=== PATIENT | female | born 1950 | race Hispanic/Latino ===

== ENCOUNTER → 2018-10-13 | Outpatient (CLI) | payer MEDICARE ==
[~2018-10-13] MED LIST: HYDR-3421 PO; LISI40TA4 PO; PREG50 PO; SENN8.6T90 PO; TRAM50TA4 PO
== END | disposition home or self-care (01) ==
LOC: OIH 13:49
PROVIDERS: ATTEND Family Medicine
DX: M19.071 Primary osteoarthritis, right ankle and foot (principal); M77.31 Calcaneal spur, right foot
CPT/HCPCS: 73600

== ENCOUNTER → 2018-12-08 | Outpatient (CLI) | payer MEDICARE | END | disposition home or self-care (01) | LOC: OIH 11:12 | PROVIDERS: ATTEND Family Medicine | DX: M85.80 Other specified disorders of bone density and structure, unspecified site (principal) | CPT/HCPCS: 73562 ==

== ENCOUNTER 2019-05-04 09:42 | Inpatient (IN) | payer MEDICARE | END 2019-05-08 12:05 | disposition home or self-care (01) | LOC: EDH 09:42 → EDHIP 09:43 → 4BH 11:00 | DX: M48.061 Spinal stenosis, lumbar region without neurogenic claudication (principal); Z85.118 Personal history of other malignant neoplasm of bronchus and lung; I48.91 Unspecified atrial fibrillation; M47.9 Spondylosis, unspecified ==

== ENCOUNTER → 2019-05-18 | Outpatient (CLI) | payer MEDICARE ==
[~2019-05-18] MED LIST changes: +DICL75TA5 PO; -HYDR-3421 PO; +HYDR-4068 PO; +INSLAN SQ; +NAPR-1023 PO; -PREG50 PO; -SENN8.6T90 PO; -TRAM50TA4 PO
== END | disposition home or self-care (01) ==
LOC: RAH 10:27
PROVIDERS: ATTEND Family Medicine
DX: M77.31 Calcaneal spur, right foot (principal)
CPT/HCPCS: 73610; 73630

== ENCOUNTER 2021-05-24 11:03 | Observation (INO) | payer OTHER, MEDICARE ==
[~2021-05-24] VITALS: Ht 160 cm; Wt 49.6 kg
[~2021-05-24 11:03] MED LIST changes: -LISI40TA4 PO; +LISI40TA9 PO
[2021-05-24 11:40] LABS: MEAN CORPUSCULAR HEMOGLOBIN 29.4 pg (27.0-33.0); MEAN CORPUSCULAR HGB CONC 31.4 g/dL (32.0-36.0); MEAN CORPUSCULAR VOLUME 93.7 fL (79-99); NUCLEATED RED BLOOD CELLS 0.3 % (0.0-0.19); PLATELET COUNT (AUTO) 145 K/uL (130-400); RED BLOOD CELL COUNT(AUTO) 2.21 MIL/uL (4.00-5.50); WHITE BLOOD COUNT (AUTO) 7.8 K/uL (4.8-10.8)
[2021-05-24] MEDS: 0.9%NACL 1000ML 1,000 ML IV SCH (11:46)
[2021-05-24 11:51] LABS: CREATININE 0.7 mg/dL (0.5-1.5); POTASSIUM 3.5 mmol/L (3.5-5.1)
[2021-05-24 11:55] LABS: ALBUMIN 2.7 g/dL (3.5-5.0); BILIRUBIN,TOTAL 0.2 mg/dL (0.2-1.0)
[2021-05-24] MEDS ORDERED: DiphenhydrAMINE HCL 50 MG/ML VIAL IVP PRN (12:00)
[2021-05-24] MEDS ORDERED: MORPHINE 4 MG SYG IVP PRN (12:00)
[2021-05-24] MEDS ORDERED: NITROGLYCERIN 0.4 MG SL TAB SL PRN (12:00)
[2021-05-24] MEDS ORDERED: ONDANSETRON 4MG INJ IVP PRN (12:00)
[2021-05-24] MEDS ORDERED: IPRATROPIUM/ALBUTEROL SULFATE 3 ML SOLUTION IH PRN (12:00)
[2021-05-24] MEDS ORDERED: LACTULOSE 20 GM/30 ML UDCUP PO PRN (12:00)
[2021-05-24] MEDS ORDERED: DIPHENHYDRAMINE HCL 25 MG CAPSULE PO PRN (12:00)
[2021-05-24] MEDS ORDERED: ACETAMINOPHEN 325 MG TAB PO PRN ×2 (12:00)
[2021-05-24] MEDS ORDERED: 0.9%NACL 10ML VIAL IVP SCH (12:00)
[2021-05-24] MEDS ORDERED: CLONIDINE HCL 0.1 MG TABLET PO PRN (12:00)
[2021-05-24] MEDS ORDERED: ZOLPIDEM TARTRATE 5 MG TAB PO PRN (12:00)
[2021-05-24] MEDS ORDERED: GUAIFENESIN-DM 200/20 MG 10 ML PO PRN (12:00)
[2021-05-24] MEDS ORDERED: MAG/ALUM/SIMETH 30 ML UDCUP PO PRN (12:00)
[2021-05-24 12:10] VITALS: BP 146/61
[2021-05-24 12:28] LABS: HEMATOCRIT 20.7 % (36-48)
[2021-05-24 12:39] LABS: BASOPHILS % (MANUAL) 4 % (0-2); LYMPHOCYTES % (MANUAL) 12 % (22-44); MONOCYTES % (MANUAL) 6 % (2-9); SEGMENTED NEUTROPHILS % 78 % (40-70)
[2021-05-24 12:40] LABS: MAN.DIFF COMMENT-IMPRESSION MANUAL DIFFERENTIAL; PLATELET MORPHOLOGY COMMENT ADEQUATE
[2021-05-24] MEDS ORDERED: FENT-77 TD (14:49)
[2021-05-24] MEDS ORDERED: [UNRECOGNIZED DRUG - OTHER] INJ (14:49)
[2021-05-24] MEDS ORDERED: MULT-1258 PO (14:49)
[2021-05-24] MEDS ORDERED: IBUP-2077 PO (14:49)
[2021-05-24] MEDS ORDERED: ESCI5TAB16 PO (14:49)
[2021-05-24] MEDS ORDERED: [UNRECOGNIZED DRUG - CODE] PO (14:49)
[2021-05-24 16:00] VITALS: BP 103/46
[2021-05-24] MEDS: FAMOTIDINE 20MG TAB PO SCH (19:42)
[2021-05-24 20:00] VITALS: BP 121/68
[2021-05-24 20:38] LABS: HEMATOCRIT 24.3 % (36-48)
[2021-05-25] VITALS: BP 114/50
[2021-05-25] MEDS: 0.9%NACL 1000ML 1,000 ML IV SCH (00:26)
[2021-05-25 04:00] VITALS: BP 138/48
[2021-05-25 05:34] LABS: HEMATOCRIT 25.3 % (36-48); MEAN CORPUSCULAR HEMOGLOBIN 30.2 pg (27.0-33.0); MEAN CORPUSCULAR HGB CONC 32.8 g/dL (32.0-36.0); NUCLEATED RED BLOOD CELLS 0.4 % (0.0-0.19); RED BLOOD CELL COUNT(AUTO) 2.75 MIL/uL (4.00-5.50); RED CELL DISTRIBUTION WIDTH 17.4 % (11.0-15.5)
[2021-05-25 07:50] VITALS: BP 126/55
[2021-05-25] MEDS: FAMOTIDINE 20MG TAB PO SCH (09:14)
[2021-05-25 10:55] VITALS: BP 121/68
== END 2021-05-25 14:32 | disposition home or self-care (01) ==
LOC: EDH 11:03 → EDHIP 11:24 → 3DH 12:16
PROVIDERS: ADMIT Internal Medicine; ATTEND Internal Medicine
DX: D64.81 Anemia due to antineoplastic chemotherapy (principal); T45.1X5A Adverse effect of antineoplastic and immunosuppressive drugs, initial encounter; D69.6 Thrombocytopenia, unspecified; E11.65 Type 2 diabetes mellitus with hyperglycemia; I10 Essential (primary) hypertension; J44.9 Chronic obstructive pulmonary disease, unspecified; Z85.118 Personal history of other malignant neoplasm of bronchus and lung; Z90.710 Acquired absence of both cervix and uterus; Z90.49 Acquired absence of other specified parts of digestive tract; Z79.899 Other long term (current) drug therapy; Z98.890 Other specified postprocedural states; Z79.4 Long term (current) use of insulin
CPT/HCPCS: 36415 ×2; 36430; 80053; 85014; 85018; 85025; 85027; 86850; 86900; 86901; 86923; 94640; 94664; 96360; 96361 ×2; G0378 ×24; P9016; G0379

== ENCOUNTER 2021-06-24 17:59 | Inpatient (IN) | payer OTHER, MEDICARE ==
[~2021-06-24] VITALS: Ht 157.5 cm; Wt 55.3 kg
[~2021-06-24 17:59] MED LIST changes: -DICL75TA5 PO; +ESCI5TAB16 PO; +FENT-77 TD; -HYDR-4068 PO; -INSLAN SQ; -LISI40TA9 PO; +MULT-1258 PO; -NAPR-1023 PO; +[UNRECOGNIZED DRUG - CODE] PO; +[UNRECOGNIZED DRUG - OTHER] INJ
[2021-06-24 18:10] VITALS: BP 156/60
[2021-06-24 18:18] LABS: BASOPHILS % (AUTO) 0.2 % (0.0-5.0); EOSINOPHILS % (AUTO) 0.1 % (0.0-8.0); HEMATOCRIT 33.4 % (36-48); LYMPHOCYTES % (AUTO) 7.2 % (21.0-51.0); MEAN CORPUSCULAR HEMOGLOBIN 31.7 pg (27.0-33.0); MEAN CORPUSCULAR HGB CONC 34.7 g/dL (32.0-36.0); MEAN CORPUSCULAR VOLUME 91.3 fL (79-99); MONOCYTES % (AUTO) 8.6 % (3.0-13.0); NEUTROPHILS % (AUTO) 83.3 % (40.0-77.0); PLATELET COUNT (AUTO) 162 K/uL (130-400); RED BLOOD CELL COUNT(AUTO) 3.66 MIL/uL (4.00-5.50); RED CELL DISTRIBUTION WIDTH 16.5 % (11.0-15.5); WHITE BLOOD COUNT (AUTO) 8.7 K/uL (4.8-10.8)
[2021-06-24 18:26] LABS: POTASSIUM 3.9 mmol/L (3.5-5.1)
[2021-06-24 18:30] LABS: ALBUMIN 2.8 g/dL (3.5-5.0); BILIRUBIN,TOTAL 2.1 mg/dL (0.2-1.0); TOTAL PROTEIN, SERUM 8.1 g/dL (6.0-8.3)
[2021-06-24] MEDS ORDERED: MORPHINE 2 MG SYG IVP ONE (18:30)
[2021-06-24] MEDS ORDERED: 0.9%NACL 1000ML 1,000 ML IV ONE (18:30)
[2021-06-24] MEDS ORDERED: ONDANSETRON 4MG INJ IVP ONE (18:30)
[2021-06-24] MEDS ORDERED: ACETAMINOPHEN 325 MG TAB PO ONE (18:30)
[2021-06-24 18:36] LABS: CRP QUANTITATIVE 197.1 mg/L (0.00-9.0)
[2021-06-24 18:46] LABS: B-TYPE NATRIURETIC PEPTIDE 82 pg/mL (0-100)
[2021-06-24 19:30] VITALS: BP 135/69
[2021-06-24 19:49] LABS: INR 1.01 (0.85-1.15)
[2021-06-24 19:50] LABS: PARTIAL THROMBOPLASTIN TIME 25.9 SEC (26.3-35.5)
[2021-06-24 20:04] LABS: ABG HCO3 18.8 mmol/L (21.0-28.0); ABG OXYGEN SATURATION 96.9 % (95.0-99.0); ABG PCO2 26 mmHg (32-45)
[2021-06-24 20:51] VITALS: BP 138/81
[2021-06-24] MEDS: 0.9%NACL 1000ML 1,000 ML IV SCH (21:18)
[2021-06-24] MEDS ORDERED: ONDANSETRON 4MG INJ IVP PRN (22:00)
[2021-06-24 22:08] VITALS: BP 136/51
[2021-06-24 23:25] VITALS: BP 115/54
[2021-06-24 23:27] LABS: APPEARANCE,URINE Clear (CLEAR); BILIRUBIN,URINE Moderate (NEGATIVE); COLOR,URINE Dark Yellow (YELLOW); GLUCOSE, URINE (UA) Negative (NEGATIVE); KETONES,URINE Trace mg/dL (NEGATIVE); LEUKOCYTE ESTERASE ,URINE Trace (NEGATIVE); NITRATE,URINE Negative (NEGATIVE); OCCULT BLOOD,URINE Negative (NEGATIVE); PH,URINE 5.5 (5.0-8.0); PROTEIN,URINE POS 1+ mg/dL (NEGATIVE)
[2021-06-24 23:38] LABS: RBC,URINE 0-1 /HPF (0-1); WBC,URINE 0-1 /HPF (0-1)
[2021-06-24 23:39] LABS: BACTERIA,URINE None Seen /HPF (None Seen); SQUAMOUS EPITHELIAL CELL,UR Moderate /HPF (0-2)
[2021-06-25] VITALS (9 sets, daily range): BP systolic 98–164; BP diastolic 48–75
[2021-06-25] MEDS: MORPHINE 2 MG SYG IVP PRN ×3 (01:52→20:16)
[2021-06-25] MEDS: 0.9%NACL 1000ML 1,000 ML IV SCH ×3 (04:49→20:28)
[2021-06-25 06:11] LABS: BASOPHILS % (AUTO) 0.2 % (0.0-5.0); HEMATOCRIT 32.3 % (36-48); LYMPHOCYTES % (AUTO) 7.1 % (21.0-51.0); MEAN CORPUSCULAR HEMOGLOBIN 31.5 pg (27.0-33.0); MEAN CORPUSCULAR HGB CONC 34.7 g/dL (32.0-36.0); MONOCYTES % (AUTO) 6.1 % (3.0-13.0); NEUTROPHILS % (AUTO) 86.2 % (40.0-77.0); PLATELET COUNT (AUTO) 150 K/uL (130-400); RED BLOOD CELL COUNT(AUTO) 3.55 MIL/uL (4.00-5.50); RED CELL DISTRIBUTION WIDTH 16.6 % (11.0-15.5); WHITE BLOOD COUNT (AUTO) 5.1 K/uL (4.8-10.8)
[2021-06-25 06:20] LABS: CREATININE 1.2 mg/dL (0.5-1.5); PHOSPHORUS 2.7 mg/dL (2.5-4.9)
[2021-06-25 06:29] LABS: POTASSIUM 3.6 mmol/L (3.5-5.1)
[2021-06-25] MEDS: FAMOTIDINE 20MG VIAL IV SCH (08:57)
[2021-06-25] MEDS ORDERED: OMEP20CA12 PO (20:05)
[2021-06-26] MEDS: MORPHINE 2 MG SYG IVP PRN ×4 (00:36→23:54)
[2021-06-26] MEDS: 0.9%NACL 1000ML 1,000 ML IV SCH ×3 (03:13→20:31)
[2021-06-26 04:00] VITALS: BP 131/62
[2021-06-26 08:00] VITALS: BP 125/59
[2021-06-26] MEDS: FAMOTIDINE 20MG VIAL IV SCH (09:51)
[2021-06-26 12:22] VITALS: BP 140/69
[2021-06-26 13:16] LABS: BASOPHILS % (AUTO) 0.5 % (0.0-5.0); EOSINOPHILS % (AUTO) 3.9 % (0.0-8.0); HEMATOCRIT 34.6 % (36-48); MEAN CORPUSCULAR HEMOGLOBIN 31.9 pg (27.0-33.0); MEAN CORPUSCULAR HGB CONC 32.4 g/dL (32.0-36.0); MEAN CORPUSCULAR VOLUME 98.6 fL (79-99); MONOCYTES % (AUTO) 5.7 % (3.0-13.0); NEUTROPHILS % (AUTO) 83.1 % (40.0-77.0); PLATELET COUNT (AUTO) 97 K/uL (130-400); RED BLOOD CELL COUNT(AUTO) 3.51 MIL/uL (4.00-5.50); RED CELL DISTRIBUTION WIDTH 16.9 % (11.0-15.5); WHITE BLOOD COUNT (AUTO) 8.5 K/uL (4.8-10.8)
[2021-06-26 13:27] LABS: CREATININE 0.6 mg/dL (0.5-1.5); POTASSIUM 4.9 mmol/L (3.5-5.1)
[2021-06-26 16:00] VITALS: BP 144/73
[2021-06-26 20:00] VITALS: BP 137/72
[2021-06-26] MEDS: PANTOPRAZOLE 40 MG/VIAL IVP SCH (20:31)
[2021-06-26 23:56] VITALS: BP 146/70
[2021-06-27 03:32] VITALS: BP 151/69
[2021-06-27 04:48] LABS: BASOPHILS % (AUTO) 0.2 % (0.0-5.0); EOSINOPHILS % (AUTO) 0.1 % (0.0-8.0); MEAN CORPUSCULAR HEMOGLOBIN 31.5 pg (27.0-33.0); MEAN CORPUSCULAR HGB CONC 33.7 g/dL (32.0-36.0); MEAN CORPUSCULAR VOLUME 93.5 fL (79-99); MONOCYTES % (AUTO) 6.8 % (3.0-13.0); NEUTROPHILS % (AUTO) 87.2 % (40.0-77.0); PLATELET COUNT (AUTO) 119 K/uL (130-400); RED BLOOD CELL COUNT(AUTO) 3.21 MIL/uL (4.00-5.50); RED CELL DISTRIBUTION WIDTH 16.8 % (11.0-15.5); WHITE BLOOD COUNT (AUTO) 8.9 K/uL (4.8-10.8)
[2021-06-27 05:01] LABS: CREATININE 0.6 mg/dL (0.5-1.5); POTASSIUM 3.4 mmol/L (3.5-5.1)
[2021-06-27] MEDS: 0.9%NACL 1000ML 1,000 ML IV SCH ×3 (05:15→21:06)
[2021-06-27] MEDS ORDERED: POTASSIUM CHLORIDE 10MEQ/100ML 10 MEQ/100 ML ML IV SCH (07:00)
[2021-06-27] MEDS: MORPHINE 2 MG SYG IVP PRN ×3 (07:10→22:00)
[2021-06-27] MEDS ORDERED: POTASSIUM CHLORIDE 10MEQ/100ML 100 ML IV SCH (07:30)
[2021-06-27 08:00] VITALS: BP 138/57
[2021-06-27] MEDS: PANTOPRAZOLE 40 MG/VIAL IVP SCH ×2 (09:25→21:01)
[2021-06-27 12:00] VITALS: BP 161/75
[2021-06-27] MEDS ORDERED: ZOSYN 3.375GM+NS 50ML 3.38 GM in 0.9%NACL 50ML 50 ML IV SCH (13:00)
[2021-06-27] MEDS: ZOSYN 3.375GM +NS 50ML IV SCH ×2 (13:03→21:01)
[2021-06-27] MEDS: 0.9%NACL 50ML IV SCH ×2 (13:04→21:06)
[2021-06-27 16:00] VITALS: BP 152/71
[2021-06-27 20:10] VITALS: BP 148/74
[2021-06-27 23:35] VITALS: BP 151/74
[2021-06-28] VITALS (7 sets, daily range): BP systolic 128–159; BP diastolic 57–102
[2021-06-28] MEDS: ZOSYN 3.375GM +NS 50ML IV SCH ×3 (04:30→15:12)
[2021-06-28] MEDS: 0.9%NACL 50ML IV SCH ×3 (04:30→20:13)
[2021-06-28] MEDS: 0.9%NACL 1000ML 1,000 ML IV SCH (04:30)
[2021-06-28 06:34] LABS: BASOPHILS % (AUTO) 0.2 % (0.0-5.0); EOSINOPHILS % (AUTO) 0.2 % (0.0-8.0); LYMPHOCYTES % (AUTO) 5.7 % (21.0-51.0); MEAN CORPUSCULAR HGB CONC 32.6 g/dL (32.0-36.0); MEAN CORPUSCULAR VOLUME 95.1 fL (79-99); MONOCYTES % (AUTO) 6.5 % (3.0-13.0); NEUTROPHILS % (AUTO) 86.7 % (40.0-77.0); PLATELET COUNT (AUTO) 106 K/uL (130-400); RED BLOOD CELL COUNT(AUTO) 2.84 MIL/uL (4.00-5.50); RED CELL DISTRIBUTION WIDTH 16.6 % (11.0-15.5); WHITE BLOOD COUNT (AUTO) 10.1 K/uL (4.8-10.8)
[2021-06-28 06:50] LABS: CREATININE 0.5 mg/dL (0.5-1.5); MAGNESIUM 1.8 mg/dL (1.80-2.40)
[2021-06-28 06:56] LABS: POTASSIUM 2.9 mmol/L (3.5-5.1)
[2021-06-28] MEDS ORDERED: POTASSIUM CHLORIDE 20MEQ/100ML 100 ML IV SCH (07:30)
[2021-06-28] MEDS: POTASSIUM CHLORIDE 20MEQ/100ML 100 ML IV PRN ×2 (08:11→10:50)
[2021-06-28] MEDS ORDERED: LIDOCAINE HCL-MPF 1% 2ML VIAL IJ PRN (08:30)
[2021-06-28] MEDS ORDERED: POTASSIUM CHLORIDE 10% ELIXIR 20 MEQ/15 ML UDCUP PO PRN (08:30)
[2021-06-28] MEDS: PANTOPRAZOLE 40 MG/VIAL IVP SCH ×2 (08:52→20:13)
[2021-06-28] MEDS: KCL 20 MEQ ERTAB PO SCH (09:00)
[2021-06-28] MEDS: DEXTROSE 5%-LACTATED RINGERS 1,000 ML IV SCH (11:13)
[2021-06-28] MEDS ORDERED: KCL 20 MEQ ERTAB PO ONE (13:30)
[2021-06-28] MEDS: MORPHINE 2 MG SYG IVP PRN (16:26)
[2021-06-29] MEDS: DEXTROSE 5%-LACTATED RINGERS 1,000 ML IV SCH ×2 (00:48→12:17)
[2021-06-29 04:09] VITALS: BP 154/60
[2021-06-29] MEDS: 0.9%NACL 50ML IV SCH ×4 (04:41→21:00)
[2021-06-29] MEDS: ZOSYN 3.375GM +NS 50ML IV SCH ×2 (04:41→12:17)
[2021-06-29 06:22] LABS: BASOPHILS % (AUTO) 0.1 % (0.0-5.0); EOSINOPHILS % (AUTO) 0.9 % (0.0-8.0); HEMATOCRIT 25.5 % (36-48); LYMPHOCYTES % (AUTO) 10.2 % (21.0-51.0); MEAN CORPUSCULAR HEMOGLOBIN 31.3 pg (27.0-33.0); MEAN CORPUSCULAR HGB CONC 33.3 g/dL (32.0-36.0); MEAN CORPUSCULAR VOLUME 93.8 fL (79-99); MONOCYTES % (AUTO) 5.9 % (3.0-13.0); PLATELET COUNT (AUTO) 87 K/uL (130-400); RED BLOOD CELL COUNT(AUTO) 2.72 MIL/uL (4.00-5.50); RED CELL DISTRIBUTION WIDTH 16.5 % (11.0-15.5); WHITE BLOOD COUNT (AUTO) 10.6 K/uL (4.8-10.8)
[2021-06-29 06:34] LABS: CREATININE 0.6 mg/dL (0.5-1.5)
[2021-06-29 06:42] LABS: POTASSIUM 2.5 mmol/L (3.5-5.1)
[2021-06-29] MEDS: KCL 20 MEQ ERTAB PO PRN (06:49)
[2021-06-29 07:30] VITALS: BP_SYST 146; BP_SYST 163; BP_DIAS 66; BP_DIAS 68
[2021-06-29] MEDS: PANTOPRAZOLE 40 MG/VIAL IVP SCH ×2 (09:18→20:58)
[2021-06-29] MEDS: KCL 20 MEQ ERTAB PO SCH (09:18)
[2021-06-29] MEDS: MORPHINE 2 MG SYG IVP PRN (09:18)
[2021-06-29] MEDS ORDERED: KCL 20 MEQ ERTAB PO SCH (11:00)
[2021-06-29 11:20] VITALS: BP 141/61
[2021-06-29] MEDS: POTASSIUM CHLORIDE 20MEQ/100ML 100 ML IV PRN (12:47)
[2021-06-29 13:12] LABS: CREATININE 0.8 mg/dL (0.5-1.5); MAGNESIUM 1.4 mg/dL (1.80-2.40)
[2021-06-29 13:18] LABS: POTASSIUM 2.9 mmol/L (3.5-5.1)
[2021-06-29 15:30] VITALS: BP 150/72
[2021-06-29] MEDS: MAGNESIUM 2GM PREMIX 50ML 50 ML IV PRN (18:36)
[2021-06-29 20:00] VITALS: BP 136/62
[2021-06-30 00:01] VITALS: BP 140/58
[2021-06-30] MEDS: DEXTROSE 5%-LACTATED RINGERS 1,000 ML IV SCH (02:36)
[2021-06-30] MEDS: 0.9%NACL 50ML IV SCH ×3 (05:00→21:00)
[2021-06-30 05:39] LABS: HEMATOCRIT 24.8 % (36-48); MEAN CORPUSCULAR HEMOGLOBIN 31.1 pg (27.0-33.0); MEAN CORPUSCULAR HGB CONC 33.5 g/dL (32.0-36.0); MEAN CORPUSCULAR VOLUME 92.9 fL (79-99); RED BLOOD CELL COUNT(AUTO) 2.67 MIL/uL (4.00-5.50); WHITE BLOOD COUNT (AUTO) 8.5 K/uL (4.8-10.8)
[2021-06-30 06:08] LABS: CREATININE 0.5 mg/dL (0.5-1.5); MAGNESIUM 1.5 mg/dL (1.80-2.40)
[2021-06-30 06:09] LABS: POTASSIUM 2.6 mmol/L (3.5-5.1)
[2021-06-30] MEDS: MAGNESIUM 2GM PREMIX 50ML 50 ML IV PRN (06:19)
[2021-06-30] MEDS: KCL 20 MEQ ERTAB PO PRN ×2 (07:17→20:10)
[2021-06-30 08:00] VITALS: BP 136/53
[2021-06-30] MEDS: KCL 20 MEQ ERTAB PO SCH (10:17)
[2021-06-30] MEDS: PANTOPRAZOLE 40 MG/VIAL IVP SCH ×2 (10:17→20:08)
[2021-06-30 12:00] VITALS: BP 135/50
[2021-06-30 13:52] LABS: CREATININE 0.6 mg/dL (0.5-1.5); POTASSIUM 3.5 mmol/L (3.5-5.1)
[2021-06-30] MEDS ORDERED: AMILORIDE 5MG TAB PO SCH (14:00)
[2021-06-30 16:00] VITALS: BP 134/64
[2021-06-30] MEDS ORDERED: ENOXAPARIN SODIUM 30 MG/0.3 ML SQ SCH (16:00)
[2021-06-30 20:34] VITALS: BP 113/49
[2021-07-01] VITALS (7 sets, daily range): BP systolic 122–138; BP diastolic 51–65
[2021-07-01] MEDS: 0.9%NACL 50ML IV SCH ×3 (05:00→20:44)
[2021-07-01 06:47] LABS: HEMATOCRIT 25.2 % (36-48); MEAN CORPUSCULAR HEMOGLOBIN 31.5 pg (27.0-33.0); MEAN CORPUSCULAR HGB CONC 33.3 g/dL (32.0-36.0); MEAN CORPUSCULAR VOLUME 94.4 fL (79-99); RED BLOOD CELL COUNT(AUTO) 2.67 MIL/uL (4.00-5.50); RED CELL DISTRIBUTION WIDTH 15.9 % (11.0-15.5); WHITE BLOOD COUNT (AUTO) 11.2 K/uL (4.8-10.8)
[2021-07-01 07:00] LABS: CREATININE 0.5 mg/dL (0.5-1.5); MAGNESIUM 1.8 mg/dL (1.80-2.40); POTASSIUM 4.4 mmol/L (3.5-5.1)
[2021-07-01] MEDS: KCL 20 MEQ ERTAB PO SCH (08:35)
[2021-07-01] MEDS: PANTOPRAZOLE 40 MG/VIAL IVP SCH ×2 (08:43→20:01)
[2021-07-01] MEDS: ENOXAPARIN SODIUM 30 MG/0.3 ML SQ SCH (08:43)
[2021-07-02 04:45] VITALS: BP 137/64
[2021-07-02] MEDS: 0.9%NACL 50ML IV SCH (05:00)
[2021-07-02 08:00] VITALS: BP 128/53
[2021-07-02] MEDS: PANTOPRAZOLE 40 MG/VIAL IVP SCH ×2 (08:37→20:02)
[2021-07-02] MEDS: ENOXAPARIN SODIUM 30 MG/0.3 ML SQ SCH (08:38)
[2021-07-02] MEDS: KCL 20 MEQ ERTAB PO SCH (08:38)
[2021-07-02 12:00] VITALS: BP 111/56
[2021-07-02 16:00] VITALS: BP 118/54
[2021-07-02 19:38] VITALS: BP 127/65
[2021-07-02 23:51] VITALS: BP 106/51
[2021-07-03 03:50] VITALS: BP 114/45
[2021-07-03 08:54] VITALS: BP 129/53
[2021-07-03 09:04] LABS: BASOPHILS % (AUTO) 0.1 % (0.0-5.0); EOSINOPHILS % (AUTO) 1.7 % (0.0-8.0); HEMATOCRIT 22.6 % (36-48); LYMPHOCYTES % (AUTO) 13.2 % (21.0-51.0); MEAN CORPUSCULAR HEMOGLOBIN 30.9 pg (27.0-33.0); MEAN CORPUSCULAR HGB CONC 33.2 g/dL (32.0-36.0); MONOCYTES % (AUTO) 5.1 % (3.0-13.0); NEUTROPHILS % (AUTO) 79.2 % (40.0-77.0); PLATELET COUNT (AUTO) 83 K/uL (130-400); RED BLOOD CELL COUNT(AUTO) 2.43 MIL/uL (4.00-5.50); RED CELL DISTRIBUTION WIDTH 15.8 % (11.0-15.5); WHITE BLOOD COUNT (AUTO) 8.8 K/uL (4.8-10.8)
[2021-07-03 09:05] LABS: RETICULOCYTE % (AUTO) 2.53 % (0.42-2.23)
[2021-07-03 09:13] LABS: CREATININE 0.5 mg/dL (0.5-1.5); POTASSIUM 3.8 mmol/L (3.5-5.1)
[2021-07-03 09:17] LABS: ALBUMIN 1.6 g/dL (3.5-5.0); BILIRUBIN,TOTAL 0.6 mg/dL (0.2-1.0); MAGNESIUM 1.5 mg/dL (1.80-2.40); PHOSPHORUS 3.5 mg/dL (2.5-4.9); TOTAL PROTEIN, SERUM 6.1 g/dL (6.0-8.3)
[2021-07-03] MEDS: PANTOPRAZOLE 40 MG/VIAL IVP SCH ×2 (09:22→20:30)
[2021-07-03] MEDS: KCL 20 MEQ ERTAB PO SCH (09:23)
[2021-07-03] MEDS: ENOXAPARIN SODIUM 30 MG/0.3 ML SQ SCH (09:24)
[2021-07-03 09:32] LABS: % IRON SATURATION 13.6 % (22-44)
[2021-07-03] MEDS ORDERED: HYDROMORPHONE 0.5 MG SYG (0.5MG/0.5ML) IVP PRN (10:30)
[2021-07-03] MEDS ORDERED: HYDROCODONE/ACETAMINOPHEN 5/325 MG TAB PO PRN (10:30)
[2021-07-03 12:18] VITALS: BP 121/43
[2021-07-03 17:24] VITALS: BP 98/45
[2021-07-03 19:53] VITALS: BP 136/53
[2021-07-03 23:47] VITALS: BP 119/48
[2021-07-04] MEDS: HYDROCODONE/ACETAMINOPHEN 5/325 MG TAB PO PRN ×2 (03:49→15:31)
[2021-07-04 04:08] VITALS: BP 115/52
[2021-07-04 08:13] VITALS: BP 119/58
[2021-07-04] MEDS: PANTOPRAZOLE 40 MG/VIAL IVP SCH (08:48)
[2021-07-04] MEDS: KCL 20 MEQ ERTAB PO SCH (08:48)
[2021-07-04] MEDS: ENOXAPARIN SODIUM 30 MG/0.3 ML SQ SCH (08:48)
[2021-07-04 12:37] VITALS: BP 119/54
== END 2021-07-04 15:49 | disposition hospice, home (50) | DRG 388 ==
LOC: EDH 17:59 → EDHIP 19:30 → 4AH 06-25 13:50 → 2AH 07-02 04:43
PROVIDERS: ADMIT Internal Medicine; ATTEND Internal Medicine
PROC: 0D9670Z Drainage of Stomach with Drainage Device, Via Natural or Artificial Opening (ICD-10-PCS; principal; 2021-06-24)
DX: K56.609 Unspecified intestinal obstruction, unspecified as to partial versus complete obstruction (principal); U07.1 COVID-19; J12.82 Pneumonia due to coronavirus disease 2019; E43 Unspecified severe protein-calorie malnutrition; E87.1 Hypo-osmolality and hyponatremia; C34.90 Malignant neoplasm of unspecified part of unspecified bronchus or lung; N17.9 Acute kidney failure, unspecified; D68.59 Other primary thrombophilia; E87.2 Acidosis; N18.9 Chronic kidney disease, unspecified; E11.22 Type 2 diabetes mellitus with diabetic chronic kidney disease; I12.9 Hypertensive chronic kidney disease with stage 1 through stage 4 chronic kidney disease, or unspecified chronic kidney disease; D64.9 Anemia, unspecified; R62.7 Adult failure to thrive; E83.42 Hypomagnesemia; E87.6 Hypokalemia; D69.59 Other secondary thrombocytopenia; E86.1 Hypovolemia; E87.8 Other disorders of electrolyte and fluid balance, not elsewhere classified; K42.9 Umbilical hernia without obstruction or gangrene; Z68.22 Body mass index [BMI] 22.0-22.9, adult; Z87.891 Personal history of nicotine dependence; Z90.49 Acquired absence of other specified parts of digestive tract; R54 Age-related physical debility
CPT/HCPCS: 36415; 36600; 71045; 74018; 74176; 80048; 80053; 81001; 82550; 82607; 82728; 82746; 82803; 82948; 83036; 83540; 83550; 83605; 83690; 83735; 83880; 84100; 84145; 84484; 85025; 85027; 85045; 85378; 85610; 85730; 86140; 86850; 86900; 86901; 87040; 87046; 87324; 87635; 87804; 87880; 93005; 93970; 97039; C9113; C9803; G0378; J1650; J2405; J2543; J3475; J3480; J3490; J7030